=== PATIENT | male | born 1975 ===

== ENCOUNTER 2023-07-18 00:40 | Day surgery (SDC) | payer BC, SELFPAY ==
[2023-07-09 11:36] VITALS: BMI 28.1
--- NOTE | 2023-07-16 08:52 | SUR.PREOP ---
Patient called regarding upcoming procedure. Reviewed preop instructions, appointment times, and procedure prep.
[2023-07-18 08:00] VITALS: BP 152/89; PULSE 91; RESP 20; TEMP 36.1; O2SAT 99; BMI 28.2
[2023-07-18] MEDS: LACTATED RINGERS 1,000 ML 150 ML IV CONT (08:21)
--- NOTE | 2023-07-18 09:02 | P.PNAN_ITS ---
Anes - Initial Pre Proc Eval Procedure: Operation Date: 07/18/23 09:00 Proposed Procedures p Screening Colonoscopy - Iker Barrios MD Date/Time: 07/18/23 09:02 Surgeon: Iker Barrios MD Pre Op Diagnosis: neoplasm screening Patient Data Age: 48 Gender: M Height: 1.93 m Weight: 105.3 kg Last Vital Signs Temp 97.0 F L 07/18/23 08:00 Pulse 91 07/18/23 08:00 Resp 20 07/18/23 08:00 BP 152/89 H 07/18/23 08:00 Pulse Ox 99 07/18/23 08:00 O2 Del Method Room Air 07/18/23 08:00 Allergies Allergy/AdvReac Type Severity Reaction Status Date / Time No Known Allergies Allergy Mild Verified 07/18/23 08:07 Home Medications Medication Instructions Recorded Confirmed Type pravastatin 20 mg tablet See Rx Instructions .Route 05/29/23 07/18/23 Rx .COMPLEX #90 tabs Patient hx anesthesia problems: none Family hx anesthesia problems: none Results Review: All pre-operative results and documents have been reviewed as part of the pre- operative evaluation. [facility] Family History Family History (Updated 07/03/21 @ 14:12 by Reshma Espinal MA) Father Depression Anxiety Cerebrovascular accident Mother Diabetes mellitus Anxiety Depression Cancer Sibling Depression Anxiety Grandparent Diabetes mellitus Social History Social History (Updated 07/03/21 @ 14:09 by Reshma Espinal MA) Smoking packs per day: 0.5 Smoking cigarettes per day: 10.0 Smoking status: Current every day smoker Tobacco type: cigarettes and e-cigarettes/vaping Alcohol intake: current Alcohol use details: social Substance use: never Substance use type: does not use Living arrangements: with family Spiritual care concerns: No Anes - Eval Final PreProcedure Day of Procedure 07/18/23 09:02 Patient weight: obese Heart: regular rate and rhythm Lungs: clear to auscultation Neurological: alert and oriented Last oral intake: >/= 8 hours ASA classification: II Emergent: no Anesthetic plan: proceed Anesthesia type and monitoring: general GIVS and standard monitoring Results Review: All pre-operative results and documents have been reviewed as part of the pre- operative evaluation. Informed Consent: The patient's anesthetic plan and its attendant risks and benefits were discussed with the patient/family/POA. Questions were solicited and answers provided to the satisfaction of the patient/family/POA.
--- NOTE | 2023-07-18 09:08 | PM.HPGS ---
History of Present Illness History of Present Illness Consent: Risks, benefits, and alternatives have been discussed and questions answered. Patient agrees to proceed with procedure. Chief complaint: neoplasm screening Narrative: Sreedhar Osborne is a 48 year old male here for screening colonoscopy, had one in his 20's Review of Systems Review of Systems: All systems reviewed & are unremarkable except as noted in HPI and below PMFSH Family History Family History (Updated 07/03/21 @ 14:12 by Reshma Espinal MA) Father Depression Anxiety Cerebrovascular accident Mother Diabetes mellitus Anxiety Depression Cancer Sibling Depression Anxiety Grandparent Diabetes mellitus Social History Social History (Updated 07/03/21 @ 14:09 by Reshma Espinal MA) Smoking packs per day: 0.5 Smoking cigarettes per day: 10.0 Smoking status: Current every day smoker Tobacco type: cigarettes and e-cigarettes/vaping Alcohol intake: current Alcohol use details: social Substance use: never Substance use type: does not use Living arrangements: with family Spiritual care concerns: No Meds Home Medications and Allergies Home Medications Medication Instructions Recorded Confirmed Type pravastatin 20 mg tablet See Rx Instructions .Route 05/29/23 07/18/23 Rx .COMPLEX #90 tabs Allergies Allergy/AdvReac Type Severity Reaction Status Date / Time No Known Allergies Allergy Mild Verified 07/18/23 08:07 Vital Signs Vital Signs - 24 hr 07/18/23 08:00 Temperature 97.0 F L Pulse Rate 91 Respiratory Rate 20 Blood Pressure 152/89 H Pulse Oximetry 99 Oxygen Delivery Room Air Exam Const: General: comfortable and no acute distress HENMT: Face/Nose/Sinus: Normal nares present Eyes: General: appearance normal, both eyes and all related structures Neck: Neck: no JVD Resp: Auscultation: clear to auscultation bilaterally Cardio: Rate: regular rate Rhythm: regular rhythm GI: Inspection: non-distended GI Palp: Yes Soft to palpation Skin: General skin exam: normal color Neuro: General: gait normal Speech: normal speech Extrem: General: normal to inspection Psych: Mental Status: mental status grossly normal Assessment and Plan Assessment and plan (1) Encounter for screening colonoscopy: Code(s): Z12.11 - Encounter for screening for malignant neoplasm of colon Status: Acute Assessment and Plan: colonoscopy
[2023-07-18 09:28] VITALS: BP 118/76; PULSE 84; RESP 24; O2SAT 93
[2023-07-18 09:38] VITALS: BP 123/85; PULSE 80; RESP 24; O2SAT 95
[2023-07-18 09:48] VITALS: BP 132/97; PULSE 82; RESP 26; O2SAT 97
== END 2023-07-18 09:53 | disposition home or self-care (01) ==
PROVIDERS: PCP Nurse Practitioner; Visit Provider Internal Medicine Gastroenterology
PROC: 0DJD8ZZ Inspection of Lower Intestinal Tract, Via Natural or Artificial Opening Endoscopic (ICD-10-PCS; CPT 45378; principal; 2023-07-18 09:00)
DX: Z12.11 Encounter for screening for malignant neoplasm of colon (principal); K63.5 Polyp of colon; K57.30 Diverticulosis of large intestine without perforation or abscess without bleeding; K64.8 Other hemorrhoids; F17.210 Nicotine dependence, cigarettes, uncomplicated; F17.290 Nicotine dependence, other tobacco product, uncomplicated; E66.9 Obesity, unspecified; Z68.28 Body mass index [BMI] 28.0-28.9, adult
CPT/HCPCS: 45385; 88305; J2704; J7120